=== PATIENT | male | born 2000 | race Caucasian/White ===

== ENCOUNTER → 2022-10-26 15:46 | Outpatient (BNVA) | payer OTHER, SELFPAY | PROVIDERS: Visit Provider Podiatrist Foot & Ankle Surgery | DX: M76.71 Peroneal tendinitis, right leg (principal); S86.311A Strain of muscle(s) and tendon(s) of peroneal muscle group at lower leg level, right leg, initial encounter; V86.56XA Driver of dirt bike or motor/cross bike injured in nontraffic accident, initial encounter | CPT/HCPCS: 73630 ==

== ENCOUNTER 2022-11-09 11:09 | Outpatient (CLI) | payer OTHER, SELFPAY ==
--- NOTE | 2022-11-09 11:00 | MR_ITS ---
WS: [id number] EXAMINATION: MR foot RT wo con* [id number] ORDER DATE: 11/09/2022 12:14 PM HISTORY: Right foot pain CONTRAST: None. TECHNIQUE: Sagittal T1, sagittal STIR, coronal PD, coronal T2, axial T1, axial T2, and axial PD imagi ng with fat saturation technique. FINDINGS: Several palpable markers overlying the lateral aspect of the foot. Palpable marker along th e lateral aspect of the calcaneus. Additional palpable marker the base of the 5th metatarsal which ap pears normal. Normal talar dome. No evidence of avascular necrosis talar dome. Normal medial and late ral malleolus. No avulsion fractures. Small amount of edema anterior process of the calcaneus adjacent to the cuboid articulation suspiciou s for small comminuted fracture. Small fracture lines visualized in this area with slight depression. Recommend correlation with history of trauma. Normal bone marrow signal in the cuboid. Metatarsals appear normalNormal cuneiforms. Normal navicular . Distal Achilles appears normal. Normal peroneal tendon sheaths. Normal extensor and flexor compartm ent tendons. MR/MR foot RT wo con* [id number] IMPRESSION: 1. Small amount of edema with suspected comminuted fracture involving the ante rior process of the calcaneus with associated edema. Mild depression. Correlati on with history of trauma and area of pain. 2. No other acute findings.
== END 2022-11-09 11:10 | disposition home or self-care (01) ==
PROVIDERS: PCP Podiatrist Foot & Ankle Surgery; Visit Provider Podiatrist Foot & Ankle Surgery
DX: M79.671 Pain in right foot (principal); R60.0 Localized edema
CPT/HCPCS: 73718

== ENCOUNTER 2023-10-14 08:45 | Outpatient (CLI) | payer OTHER, MEDICAID, SELFPAY ==
--- NOTE | 2023-10-14 08:50 | US_ITS ---
WS: [id number] RIGHT UPPER QUADRANT ULTRASOUND HISTORY: UNSPECIFIED JAUNDICE COMPARISON: None available. Liver: 14.6 cm in length. Normal size liver and echogenicity. No bile duct dilatation or mass. Portal Vein: Normal hepatopetal flow with monophasic waveform. Gallbladder: Normally distended gallbladder with no stones or wall thickening. CBD: 0.3 cm Pancreas: Poorly visualized. Right kidney: 10.6 cm in length. Normal size and echogenicity. No hydronephrosis or mass. Aorta and IVC: Unremarkable abdominal aorta and IVC. No ascites. IMPRESSION: Unremarkable RIGHT upper quadrant ultrasound with the exception of the pancreas is not well visualize d. Normal gallbladder.
== END 2023-10-14 08:46 | disposition home or self-care (01) ==
PROVIDERS: PCP Podiatrist Foot & Ankle Surgery; Visit Provider Nurse Practitioner Family
DX: R17 Unspecified jaundice (principal)
CPT/HCPCS: 76705

== ENCOUNTER 2024-10-18 21:09 | Emergency (ER) | payer MEDICAID, SELFPAY ==
[2024-10-18 21:17] VITALS: BP 113/69; PULSE 91; RESP 14; TEMP 36.7; O2SAT 98
--- NOTE | 2024-10-18 21:26 | ECG_ITS ---
[facility] Date: 2024-[facility]18 Pat Name: Geoff Gutierrez Department: Room: Gender: Male [employer]: : 2000 Requested By: Frantz Connors Order Number: [id number] Juarez MD: Tad Collado M.D. Measurements Intervals Kenna Rate: 102 P: 59 CA: 127 QRS: 68 QRSD: 80 T: 31 QT: 315 QTc: 410 Interpretive Statements SINUS TACHYCARDIA NONSPECIFIC T-WAVE ABNORMALITY ABNORMAL RHYTHM ECG No previous ECG available for comparison Electronically Signed On 10-21-2024 18:07:06 [employer] by Tad Collado M.D. [email or web address]
--- NOTE | 2024-10-18 22:02 | XRR_ITS ---
PROCEDURE INFORMATION: Exam: XR Chest Exam date and time: 10/18/2024 10:11 PM Age: 24 years old Clinical indication: Other: Epigastric pain TECHNIQUE: Imaging protocol: Radiologic exam of the chest. Views: 1 view. COMPARISON: No relevant prior studies available. FINDINGS: Lungs: Unremarkable. Pleural spaces: Unremarkable. Heart/Mediastinum: Nonenlarged heart. Bones/joints: No acute fracture. XR/XR chest 1V portable [id number] IMPRESSION: No acute abnormality.
--- NOTE | 2024-10-18 22:07 | ED_ITS ---
HPI - Chest Pain 2 General: Chief Complaint: Chest Pain Stated Complaint: Strp + Center of chest upper abd pain Time Seen by Provider: 10/18/24 21:32 Source: patient Mode of arrival: ambulatory Limitations: no limitations History of Present Illness: Patient is a 24-year-old male with past medical history of GERD who presents the emergency department complaining of chest pain for the past 3 to 4 days. Notes that he has been sick for about a week, however on Wednesday notes he had severe onset of pain comparable to acid reflux. He has never seen GI or had any scope performed, but does state he has dealt with this since an early age. He notes that he has pain with taking a deep breath, however is not feeling short of breath. He did see primary care had labs drawn but has not gotten these results back. He was started on omeprazole and has been taking ibuprofen and Tylenol for pain with no relief. He states that it is significantly worsened by drinking water, and has had little appetite. Pain is nonradiating, currently rating is a 4/10 burning sensation. He has no pertinent cardiac history. Also recently started on Z-Robert for reported strep throat infection. Of note he was referred to gastroenterology in [place], states he has an appointment with them next Wednesday but that the pain was too severe and wanted it checked out now. Right now his vitals are within normal limits. No palpitations, syncopal episodes, peripheral edema, nausea, or diarrhea. He does note 1 episode of vomiting earlier this week. MD complaint: chest pain Timing of current episode: constant Prior episodes: Yes Pain location: epigastric Pain radiation: none Severity: moderate Pain scale (0-10): 4 Quality: burning Exacerbating factors: eating and other (Drinking water) Associated symptoms: Reports abdominal pain and vomiting; Deny diaphoresis, dyspnea, fever(s), nausea or palpitations Treatment prior to arrival: other (Omeprazole, Tylenol, ibuprofen) Related Data Home Medications ?Medication ?Instructions ?Recorded ?Confirmed cephalexin 500 mg capsule 500 mg PO BID 11/16/2211/16 Previous Rx's ?Medication ?Instructions ?Recorded Custom Molded Orthotics #1 ea 11/16/22 custom inserts 5514 #1 ea 11/16/22 sucralfate 1 gram tablet (Carafate) 1 g PO BID #30 tab s 10/19/24 Allergies Allergy/AdvReac Type Severity Reaction Status Date / Time No Known Allergies Allergy Verified 10/18/24 21:27 Review of Systems 2 General: Reports: 10 or more systems reviewed and unremarkable except in HPI and below Const: Reports: change in appetite; Denies: fever(s), chills, change in weight or diaphoresis ENMT: Denies: throat pain or hoarseness Card: Reports: chest pain; Denies: palpitations or lightheadedness Resp: Reports: pain on inspiration; Denies: dyspnea, productive cough or wheezing GI: Reports: abdominal pain and vomiting; Denies: nausea, diarrhea, constipation, bloating, change in stool character or hematochezia : Denies: flank pain, difficulty urinating, dysuria, urinary frequency or urinary urgency Musc: Denies: neck pain or back pain Skin/Breast: Denies: rash or new lesions Neuro: Denies: headache(s) or dizziness Physical Exam 2 Const: COMMON NORMALS: no acute distress, average body habitus, patient oriented x3, no limitations, healthy appearing, alert and well nourished G ENERAL APPEARANCE: cooperative and comfortable ORIENTATION/CONSCIOUSNESS: Yes awake HENMT: COMMON NORMALS: normocephalic, atraumatic, hearing grossly normal bilaterally, external ears normal, Normal external nose present, Normal nasal mucous membranes and turbinates present and moist oral mucous membranes HEAD & SCALP: normocephalic and atraumatic NOSE: Normal external nose present and Normal nasal mucous membranes and turbinates present EXTERNAL EAR: Yes external ears normal Eye: COMMON NORMALS: Equal, round and reactive pupils present, EOMs intact bilaterally, conjunctivae normal and normal visual bernabe by confrontation C ONJUNCTIVA: Yes conjunctivae normal PUPIL: Yes Equal, round and reactive pupils present Neck/C-Spine: COMMON NORMALS: full ROM, supple, no meningeal signs and no JVD Resp: COMMON NORMALS: normal respiratory effort, No retractions, No use of accessory muscles and clear to auscultation bilaterally AUSCULTATION: clear to auscultation bilaterally, no crackles, no rales, no rhonchi and no wheezes Cardio: COMMON NORMALS: no JVD, regular rate, regular rhythm, S1 normal heart sound present, S2 normal heart sound present, No gallops present (Cardio), No clicks present (Cardio), No murmurs present (Cardio), No rub (Cardio) and Peripheral pulses 2+ throughout RATE: regular rate RHYTHM: regular rhythm HEART SOUNDS: S1 normal heart sound present and S2 normal heart sound present PERIPHERAL PULSES: Peripheral pulses 2+ throughout GI: COMMON NORMALS: Normal to inspection, nondistended, normoactive bowel sounds present, Soft to palpation, non-tender, No hepatosplenomegaly present and no masses AUSCULTATION: Yes normoactive bowel sounds PALPATION: Yes Soft to palpation, No Guarding due to palpation present (GI), No Rigid due to palpation and Yes No hepatosplenomegaly present RECTAL EXAM: Yes deferred Extremity: COMMON NORMALS: normal to inspection and full ROM Neuro: COMMON NORMALS: patient oriented x3, moves all extremities, no focal motor deficits and no sensory deficits noted SENSORIUM/ORIENTATION: Yes alert MENINGEAL SIGNS: Yes no meningeal signs Psych: COMMON NORMALS: mental status grossly normal, cooperative and speech normal SPEECH: Yes normal speech Skin: COMMON NORMALS: no rashes or lesions noted GENERAL SKIN EXAM: no rashes or lesions noted Course 2 Vital Signs: Vital signs: Vital Signs Temperature 98.0 F 10/18/24 21:17 Pulse Rate 90 10/18/24 22:30 Respiratory Rate 14 10/18/24 21:17 Blood Pressure 150/88 10/18/24 22:30 Pulse Oximetry 97 10/18/24 22:30 Oxygen Delivery Me thod Room Air 10/18/24 22:30 MDM - Chest Pain Medical Decision Making Patient presenting with epigastric abdominal pain, history of GERD. No pertinent cardiac history though has dealt with acid reflux his entire life. Just was prescribed Meprazole has only taken 2 doses, states that he has appointment with GI next week for further evaluation but presented here to make sure his heart was okay. Troponin was normal. EKG normal. X-ray unremarkable. All of his labs normal. Notes improvement after GI cocktail. Will start him on Carafate as well, etiology could be gastritis due to H. pylori, stomach ulcer, versus other esophagitis and do think he would benefit from following up with GI as planned. Overall stable for discharge at this time, discussed return precautions of which she verbalized understanding. Lab Data 10/18/24 22:40 10/18/24 22:40 Radiology Impressions Chest X-Ray 10/18/24 22:02 IMPRESSION: No acute abnormality. Laboratory Results WBC 7.64 10^3/uL (3.29-11.43) 10/18/24 22:40 RBC 4.86 10^6/uL (3.85-5.65) 10/18/24 22:40 Hgb 14.90 g/dL (11.27-16.99) 10/18/24 22:40 Hct 44.0 % (37-53) 10/18/24 22:40 MCV 90.5 fl (82-101) 10/18/24 22:40 MCH 30.7 pg (27-33) 10/18/24 22:40 MCHC 33.9 g/dL (30-55) 10/18/24 22:40 RDW 11.4 % (12.1-15.1) L 10/18/24 22:40 Plt Count 209 10^3/cmm (157-399) 10/18/24 22:40 MPV 10.4 fL (7.4-10.4) 10/18/24 22:40 Lymph % (Auto) Not Reportable 10/18/24 22:40 [place] % (Auto) Not Reportable 10/18/24 22:40 Lymph # (Auto) Not Reportable 10/18/24 22:40 [place] # (Auto) Not Reportable 10/18/24 22:40 Total Counted 100 (0-100) 10/18/24 22:40 Atypical Lymphs % 11.0 % (0-5) H 10/18/24 22:40 Absolute Neutrophils 4.8 10^3/cmm (1.4-6.5) 10/18/24 22:40 Segmented Neutrophils 61 % 10/18/24 22:40 Band Neutrophils 2.0 % 10/18/24 22:40 Absolute Lymphocytes 2.1 10^3/cmm (1.2-3.4) 10/18/24 22:40 Lymphocytes (Manual) 17 % 10/18/24 22:40 Monocytes (Manual) 8.0 % 10/18/24 22:40 Absolute Monocytes 0.6 10^3/cmm (0.1-0.6) 10/18/24 22:40 Eosinophils (Manual) 1 % 10/18/24 22:40 Absolute Eosinophils 0.1 10^3/cmm (0.0-0.7) 10/18/24 22:40 Basophils (Manual) 0.0 % 10/18/24 22:40 Absolute Basophils 0.0 10^3/cmm (0.0-0.2) 10/18/24 22:40 Platelet Estimate Normal (Normal) 10/18/24 22:40 Sodium 136 mmol/L (136-145) 10/18/24 22:40 Potassium 4.0 mmol/L (3.5-5.1) 10/18/24 22:40 Chloride 95 mmol/L (98-107) L 10/18/24 22:40 Carbon Dioxide 22 mmol/L (22-29) 10/18/24 22:40 Anion Gap 23.0 (5-19) H 10/18/24 22:40 BUN 17 mg/dL (6-20) 10/18/24 22:40 Creatinine 1.1 mg/dL (0.7-1.2) 10/18/24 22:40 GFR Calculation 82.2 mL/min (90-130) L 10/18/24 22:40 Glucose 91 mg/dL (65-115) 10/18/24 22:40 Calculated Osmolality 283 mOsm/kg (285-295) L 10/18/24 22:40 Calcium 9.4 mg/dL (8.5-10.5) 10/18/24 22:40 Total Bilirubin 1.2 mg/dL (0.15-1.2) 10/18/24 22:40 AST 17 U/L (0-40) 10/18/24 22:40 ALT 13 U/L (0-41) 10/18/24 22:40 Alkaline Phosphatase 58 U/L (40-130) 10/18/24 22:40 Troponin T Baseline < 6 ng/L (0-15) 10/18/24 22:40 Total Protein 7.5 g/dL (6.6-8.7) 10/18/24 22:40 Albumin 4.3 g/dL (3.5-5.2) 10/18/24 22:40 Globulin 3.2 g/dL (1.3-4.6) 10/18/24 22:40 Lipase 16 U/L (13-60) 10/18/24 22:40 All radiology interpretation(s) finalized by discharge Discharge Plan Discharge Patient Disposition: Home Clinical Impression: GERD (gastroesophageal reflux disease) Qualifiers: Esophagitis presence: with esophagitis Esophagitis bleeding: without hemorrhage Qualified Code(s): K21.00 - Gastro-esophageal reflux disease with esophagitis, without bleeding Condition: Stable Prescriptions: New sucralfate [Carafate] 1 gram tablet 1 g PO BID Qty: 30 0RF No Action cephalexin 500 mg capsule 500 mg PO BID (DME) Custom Molded Orthotics See Rx Instructions .Route .MEDSUPPLY Qty: 1 0RF Rx Instructions: As directed (DME) custom inserts [id number] See Rx Instructions .Route .MEDSUPPLY Qty: 1 0RF Rx Instructions: As directed Discharge Orders: Discharge ED (Routine); Ordered 10/19/24 Ordered By: Maxim Izaguirre Referrals: Vernell Lorenzo NP [Primary Care Provider] - Patient Instructions: Soft Diet (ED), GERD (Gastroesophageal Reflux Disease) (ED) Activity Restrictions/Additional Instructions: Continue taking omeprazole. Take Carafate. Keep appointment with GI scheduled for next week. Make sure to avoid any food that makes your symptoms worse, drink plenty of water. Please return with any new or worsening. Print Language: Icelandic Coding Level of Care Code ED Gauger Chief Delivery for Titus Maciel
[2024-10-18] MEDS: lidocaine 2% viscous 15 ML, aluminum-mag hydrox-simethicon 30 ML, sucralfate oral liq 1 GM PO (22:10)
[2024-10-18 22:12] VITALS: BP 139/78; PULSE 88; O2SAT 99
[2024-10-18 22:30] VITALS: BP 150/88; PULSE 90; O2SAT 97
[2024-10-18 22:46] LABS: Mean Corpuscular HGB Conc 33.9 g/dL (30-55); Mean Corpuscular Hemoglobin 30.7 pg (27-33); Mean Corpuscular Volume 90.5 fl (82-101); Mean Platelet Volume 10.4 fL (7.4-10.4); Platelet Count 209 10^3/cmm (157-399); Red Blood Count 4.86 10^6/uL (3.85-5.65); Red Cell Distribution Width 11.4 % (12.1-15.1); White Blood Count 7.64 10^3/uL (3.29-11.43)
[2024-10-18 23:05] LABS: Troponin(5th) Baseline < 6 ng/L (0-15)
[2024-10-18 23:07] LABS: Alanine Aminotransferase 13 U/L (0-41); Albumin Level 4.3 g/dL (3.5-5.2); Alkaline Phosphatase 58 U/L (40-130); Aspartate Amino Transferase 17 U/L (0-40); Blood Urea Nitrogen 17 mg/dL (6-20); Calcium 9.4 mg/dL (8.5-10.5); Carbon Dioxide 22 mmol/L (22-29); Chloride 95 mmol/L (98-107); Creatinine Clr Calc Pharmacy 133.3086; Globulin 3.2 g/dL (1.3-4.6); Glomerular Filtration Rate 82.2 mL/min (90-130); Glucose 91 mg/dL (65-115); Lipase 16 U/L (13-60); Osmolality Calculated 283 mOsm/kg (285-295); Sodium 136 mmol/L (136-145); Total Bilirubin 1.2 mg/dL (0.15-1.2); Total Protein 7.5 g/dL (6.6-8.7)
[2024-10-18 23:08] LABS: Slide Review Slide Review Perform
[2024-10-18 23:09] LABS: Absolute Eosinophils 0.1 10^3/cmm (0.0-0.7); Absolute Neutrophil 4.8 10^3/cmm (1.4-6.5); Absolute Segmented Neutrophil 4.7 10/cmm (1.6-7.1); Band Neutrophils Absolute 0.2 10^3/cmm (0.0-1.2); Eosinophils 1 %; Lymphocytes 17 %; Lymphocytes Absolute 2.1 10^3/cmm (1.2-3.4); Monocytes Absolute 0.6 10^3/cmm (0.1-0.6); Platelet Estimate Normal (Normal); Segmented Neutrophils 61 %; Total Cells Counted 100 (0-100)
[2024-10-19 00:13] VITALS: BP 151/79; PULSE 90; RESP 8; O2SAT 97
== END 2024-10-19 00:14 | disposition home or self-care (01) ==
PROVIDERS: Emergency Provider Physician Assistant; PCP Nurse Practitioner Family
DX: K21.00 Gastro-esophageal reflux disease with esophagitis, without bleeding (principal)
CPT/HCPCS: 36415; 71045; 80053; 83690; 84484; 85007; 85025; 93005; 99285

== ENCOUNTER → 2025-05-11 11:29 | Outpatient (BNVA) | payer MEDICAID, SELFPAY | PROVIDERS: PCP Nurse Practitioner Family | DX: R36.9 Urethral discharge, unspecified (principal) | CPT/HCPCS: 87491; 87591; 87661 ==